=== PATIENT | female | born 1965 | race Caucasian/White ===

== ENCOUNTER 2017-02-19 07:35 | Emergency (ER) | payer BC ==
--- NOTE | 2017-03-06 15:27 | ER ---
ADMIT: 02/19/2017 RM/LOC: ER [facility] MR#: [id number] [facility] [address] [place] [id number] KRISTEN VASQUEZ [address] [place] [address] Emergency Room Report SEX: F AGE: 51 : 1965 DATE: 02/19/2017 ADDENDUM: This 51-year-old female coming in with a little bit of agitation. She has schizophrenia. She has been seen here couple of times. At this time, she had run out of her medicine, had not followed up with [facility]. I gave her 10 of Geodon and then 2 of Ativan. We wrote her for her previous prescription of Geodon 40 b.i.d., gave her #60 of them. She started taking those. Also, Ativan 1 mg t.i.d. and she started to take that as well. She needs to see [facility] who will help her get an appointment with that. She is back to baseline. CONDITION ON DISCHARGE: Improved. Buck Gutierrez MD/ mayank JOB #: [id number] CC: Buck Gutierrez MD, Attending Physician
== END 2017-02-19 16:35 | disposition home or self-care (01) ==
LOC: ER 07:35
DX: F20.9 Schizophrenia, unspecified (principal); F41.1 Generalized anxiety disorder; F31.9 Bipolar disorder, unspecified; F17.210 Nicotine dependence, cigarettes, uncomplicated

== ENCOUNTER 2017-03-18 11:25 | Emergency (ER) | payer BC ==
--- NOTE | 2017-03-19 09:50 | NUR ---
Received SAD person referral. Pt was EPC'd to [facility].
--- NOTE | 2017-03-25 10:31 | ER ---
ADMIT: 03/18/2017 RM/LOC: ER [facility] MR#: [id number] [facility] [address] [place], [place] [phone] KRISTEN VASQUEZ [address] [place] [address] Emergency Room Report SEX: F AGE: 51 : 1965 DATE: 03/18/2017 ADDENDUM: A 51-year-old female coming in somewhat agitated, also suicidal, and said she is going to kill herself. She does have schizophrenia by history; however, she does not take her medication, and she gets agitated. Again, same thing here today. CBC, chemistry exam, and drug screen; they are all negative. We did give her a little Ativan 1 mg IM just to calm her a bit. Police will take her and EPC her to [facility]. CONDITION ON DISCHARGE: Serious but stable. Buck Gutierrez MD/ genevievel JOB #: [id number] CC: Buck Gutierrez MD, Attending Physician Jarrett Remy MD, Family Physician
== END 2017-03-18 15:15 ==
LOC: ER 11:25
DX: F20.89 Other schizophrenia (principal); R45.851 Suicidal ideations; F17.210 Nicotine dependence, cigarettes, uncomplicated

== ENCOUNTER 2017-03-25 16:25 | Emergency (ER) | payer BC ==
--- NOTE | 2017-04-13 08:08 | ER ---
ADMIT: 03/25/2017 RM/LOC: ER [facility] MR#: [id number] [address] [facility] [address] [place] [id number] KRISTEN VASQUEZ [address] [place] [address] Emergency Room Report SEX: F AGE: 51 : 1965 DATE: 03/25/2017 ADDENDUM: This patient comes to the ER because she is very anxious and agitated. She states she does not want to be alone in her house any more. She has a history of having schizophrenia. She just states that she is tired of being alone and she just feels like she is not safe at home. When I asked if she has plans to hurt herself, she denies it, just she feels like she needs to be around people. We did call the police to come and interview her. They felt there was no reason to EPC her. She had normal vital signs, very agitated. I did speak with [facility] and they will accept the patient for a psych evaluation and the police escorted her to [facility]. Please see my T-sheet. DIAGNOSES: 1. Anxiety. 2. Schizophrenia. CARL Oconnell / Buck Gutierrez MD / mayank JOB #: [id number] CC: Buck Gutierrez MD, Attending Physician
== END 2017-03-25 17:01 | disposition home or self-care (01) ==
LOC: ER 16:25
DX: F41.9 Anxiety disorder, unspecified (principal); F20.9 Schizophrenia, unspecified

== ENCOUNTER 2017-04-24 17:47 | Emergency (ER) | payer BC ==
--- NOTE | 2017-04-25 13:23 | NUR ---
Received SAD person referral from ER. Pt was EPC'd to [facility].
--- NOTE | 2017-04-26 02:42 | ER ---
ADMIT: 04/24/2017 RM/LOC: ER [facility] MR#: [id number] [id number] [facility] [address] [place], [place] [id number] KRISTEN VASQUEZ [address] [place] [address] Emergency Room Report SEX: F AGE: 51 : 1965 DATE: 04/24/2017 HISTORY OF PRESENT ILLNESS: [place] [employer] brought her in with anxiety, anger, hostility, and confusion. She is going to be an EPC going to [facility]. She has been hallucinating. One moment, she is happy or pleasant. The other, she is extremely aggressive and vocal. She has a past medical history of psychiatric problems, which includes bipolar disorder and schizophrenia, which she has not taken her medications for. She normally takes clonazepam and has no allergies. PHYSICAL EXAMINATION: VITAL SIGNS: Blood pressure 138/81 with a heart rate of 106, respirations 18, temp is 99.3, and O2 sats 98%. She is anxious and somewhat uncooperative. HEENT: Normal mucosa. Eyes, PERRLA. Pupils are 3 mm bilaterally. NEUROLOGIC: Oriented x4. Depressed mood. Tearful and hostile. She speaks Frisian only. NECK: Supple. RESPIRATIONS: No distress. ABDOMEN: Nontender, but obese. SKIN: Good color and turgor. No abrasions, lacerations, or any other pathology. EXTREMITIES: Well perfused. She is on restraints right now from the Police Department, and she is upset that she is cuffed. She is supposed to be going to [facility]. We went ahead and offer them all the labs that we have done on her. We have a CBC, which is normal with a hemoglobin of 10.4, hematocrit is 34.8, and platelets 277. Chemistry, normal. Salicylate 2.5. Toxicology is negative. Her urine does show a little bit of blood, but she says she is having her period, leukocytes 2+, wbc's 6, rbc's 4. test negative. No EKG done. CLINICAL IMPRESSION: Schizophrenia, paranoid. Medical clearance for protective emergency services. Police transporting. The patient more sedated. I gave her, because of [facility] requesting, Ativan 1 mg and then some food for the patient to eat. She will be going to [facility], which has accepted the patient. CARL Rosa / Anthony Chicas MD / genevievel JOB #: [id number] CC: Antohny Chicas MD, Attending Physician UNKNOWN, Family Physician
== END 2017-04-24 21:00 ==
LOC: ER 17:47
DX: F20.0 Paranoid schizophrenia (principal); F31.9 Bipolar disorder, unspecified; Z79.899 Other long term (current) drug therapy